=== PATIENT | female | born 2000 | race Caucasian/White ===

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

== ENCOUNTER → 2020-04-13 20:47 | Outpatient (CLI) | payer MEDICAID ==
[2019-11-27 12:55] VITALS: BMI 29.3
[~2020-04-13 20:47] MED LIST: CLEOCIN HCL300 MG PO; HYDROCODON-ACE1 EAC2 PO; VOLTAREN75 MG PO
== END | disposition home or self-care (01) ==
LOC: D.LDO 20:47
PROVIDERS: ATTEND Obstetrics & Gynecology
DX: O03.9 Complete or unspecified spontaneous abortion without complication (principal); R10.9 Unspecified abdominal pain

== ENCOUNTER 2020-04-13 21:05 | Emergency (ER) | payer MEDICAID ==
[~2020-04-13] VITALS: Ht 152.4 cm; Wt 79.5 kg
[~2020-04-13 21:05] MED LIST changes: -HYDROCODON-ACE1 EAC2 PO
[2020-04-13 21:08] VITALS: Ht 152.4 cm; Wt 79.5 kg
[2020-04-13 21:48] LABS: BILIRUBIN NEGATIVE (NEGATIVE); GLUCOSE NEGATIVE (NEGATIVE); KETONE NEGATIVE (NEGATIVE); NITRITE NEGATIVE (NEGATIVE); SPECIFIC GRAVITY 1.025 (1.005-1.020); UROBILINOGEN NORMAL (NORMAL)
[2020-04-13 21:52] LABS: RED CELLS - URINE >50 /hpf (0-5); WHITE CELLS - URINE 0-5 /hpf (NEGATIVE)
[2020-04-13 21:53] LABS: BACTERIA FEW /hpf (NEGATIVE); EPITHELIAL CELLS 0-5 /hpf (0-5)
[2020-04-13 23:43] LABS: HEMATOCRIT 40.7 % (36.0-48.0); HEMOGLOBIN 13.2 g/dL (12-16); LYMPHOCYTES 8.7 % (15-50); MCH 27.3 pg (26.0-34.0); MCHC 32.4 g/dL (31.0-37.0); MCV 84.1 fL (80.0-100.0); MEAN PLATELET VOLUME 9.2 fL (7.4-10.4); NEUTROPHILS 88.2 % (40-80); RBC 4.84 10x6/uL (4.00-5.40); RDW 12.9 % (11.5-14.5); WBC 12.4 10x3/uL (4.8-10.8)
[2020-04-13 23:44] LABS: PLATELET COUNT 357 10x3/uL (130-400)
[2020-04-13 23:51] LABS: CALC OSMOLALITY 274 mosm/kg (275-300); CALCIUM 8.6 mg/dL (8.5-10.1); CARBON DIOXIDE 25.2 mmol/L (21.0-32.0); CHLORIDE - SERUM 106 mmol/L (98-107); CREATININE - SERUM 0.8 mg/dL (0.6-1.3); GLUCOSE 117 mg/dL (74-106); POTASSIUM - SERUM 3.6 mmol/L (3.5-5.1); SODIUM 138 mmol/L (136-145); UREA NITROGEN 8 mg/dL (7-18); eGFR NON AFRICAN AMERICAN > 90 mL/min (90-120)
[2020-04-14] MEDS ORDERED: HYDROCODON-ACE1 EAC2 PO (00:01)
[2020-04-14 00:04] LABS: HCG - QUANTITATIVE (MATERNAL) 1 mIU/mL
[2020-04-14 00:12] VITALS: BP 125/84
== END 2020-04-14 00:25 | disposition home or self-care (01) ==
LOC: D.ER 21:05
PROVIDERS: Emergency Medicine
DX: O03.9 Complete or unspecified spontaneous abortion without complication (principal); R10.9 Unspecified abdominal pain